=== PATIENT | female | born 1960 | race Caucasian/White ===

== ENCOUNTER 2017-10-02 11:28 | Outpatient (CLI) | payer MEDICARE | END 2017-10-02 11:29 | disposition home or self-care (01) | LOC: DTY/OP 11:28 | PROVIDERS: ATTEND Family Medicine | DX: E11.9 Type 2 diabetes mellitus without complications (principal) | CPT/HCPCS: 97802 ==

== ENCOUNTER 2017-12-01 12:22 | Outpatient (CLI) | payer MEDICARE ==
[2017-12-01] MEDS ORDERED: Gadobenate Dimeglumine 529 MG/1 ML (20ML VIAL) ONE (13:03)
== END 2017-12-01 12:23 | disposition home or self-care (01) ==
LOC: BICMRI 12:22
PROVIDERS: ATTEND Physical Medicine & Rehabilitation
DX: M47.26 Other spondylosis with radiculopathy, lumbar region (principal); Z98.890 Other specified postprocedural states
CPT/HCPCS: 72158; A9579

== ENCOUNTER 2017-12-18 23:27 | Emergency (ER) | payer MEDICARE ==
[~2017-12-18 23:27] MED LIST: ISOVUE-370 76%-LOCM 1 ML ONE
[2017-12-18] MEDS ORDERED: Ondansetron HCl/PF 4 MG/2 ML Vial ONE (23:58)
[2017-12-18] MEDS ORDERED: Morphine 4 MG/ML VIAL ONE (23:58)
[2017-12-19 00:22] LABS: #Basophils 0.1 thou/uL (0.0-0.2); #Eosinphils 0.3 thou/uL (0.0-0.7); #Lymphocytes 2.1 thou/uL (1.20-3.40); #Monocytes 0.8 thou/uL (0.11-0.59); %Basophils 0.6 % (0.0-1.0); %Lymphocytes 20.6 % (21.0-51.0); %Monocytes 7.4 % (0.0-10.0); %Neutrophils 68.4 % (42.0-75.0); Hemoglobin 15.2 g/dL (12.0-16.0); Mean Corpuscular HGB CONC 35.1 g/dL (32.0-36.0); Mean Corpuscular Volume 91.1 fL (78.0-98.0); Platelet Count 257 thou/uL (130-400); RBC Distribution Width 12.6 % (11.5-14.5); Red Blood Cell (RBC) Count 4.75 mill/uL (4.20-5.40); White Blood Cell (WBC) Count 10.2 thou/uL (4.8-10.8)
[2017-12-19 00:43] LABS: ALT (SGPT) 39 U/L (8-55); AST (SGOT) 31 U/L (5-34); Albumin 4.3 g/dL (3.5-5.0); Alkaline Phosphatase 69 U/L (40-150); Anion Gap 15 mmol/L (10-20); BUN (Urea Nitrogen) 17 mg/dL (9.8-20.1); Bilirubin, Total 1.1 mg/dL (0.2-1.2); Calc. Creatinine Clearance 0 mL/min (70-130); Calcium 9.3 mg/dL (7.8-10.44); Carbon Dioxide 23 mmol/L (22-29); Chloride 105 mmol/L (98-107); Estimated GFR-MDRD 66; Globulin 2.8 g/dL (2.4-3.5); Glucose 120 mg/dL (70-105); Lipase 65 U/L (8-78); Potassium 3.8 mmol/L (3.5-5.1); Protein, Total 7.1 g/dL (6.0-8.3); Sodium 139 mmol/L (136-145)
[2017-12-19] MEDS ORDERED: Ketorolac Tromethamine 30 MG/ML VIAL ONE (01:00)
[2017-12-19] MEDS ORDERED: Morphine 4 MG/ML VIAL ONE (02:09)
[2017-12-19 02:16] LABS: Bilirubin Negative (Negative); Blood, Urine Small (Negative); Clarity CLEAR (Clear); Glucose, Urine (Dipstick) Negative (Negative); Leukocyte Negative (Negative); Nitrite Negative (Negative); Protein, Urine (Dipstick) Negative (Neg-Trace); Urobilinogen 0.2 mg/dL (0.2-1.0); pH, Urine 6.5 (5.0-9.0)
[2017-12-19 02:19] LABS: Bacteria/HPF None Seen HPF (None Seen); Hyaline Casts/LPF 4-6 HYALINE CAST LPF (0-3 Hyaline); Pathc Cast-AUWi Flag 1.01 (0-2.49); Squamous Epithelial 0-3 HPF (0-3); WBC/HPF 0-3 HPF (0-3)
[2017-12-19 02:24] LABS: Specific Gravity, Urine Greater than 1.060 (1.002-1.036)
[2017-12-19] MEDS ORDERED: Acetaminophen/Codeine 30-300mg Tablet ONE (03:34)
[2017-12-19] MEDS ORDERED: tiZANidine HCl 4 MG TAB PO SCH (03:45)
--- NOTE | 2017-12-19 08:30 | CT ---
PRELIMINARY REPORT/[facility]/EMERGENCY AFTER HOURS PROCEDURE: EXAM: CT Abdomen and Pelvis With Intravenous Contrast CLINICAL HISTORY: 57 years old, female; Pain; Abdominal pain; Localized; Right; Patient HX: Pt reports intractable pain in the rlq that radiates to the r flank and r back. Nad, rr even and unlabored. TECHNIQUE: Axial computed tomography images of the abdomen and pelvis with intravenous contrast. Coronal reforma tted images were created and reviewed. COMPARISON: No relevant prior studies available. FINDINGS: Lung bases: Unremarkable. No mass. No consolidation. ABDOMEN: Liver: Unremarkable. No mass. Gallbladder and bile ducts: Unremarkable. No calcified stones. No ductal dilation. Pancreas: Unremarkable. No mass. No ductal dilation. Spleen: No splenomegaly. Adrenals: Unremarkable. No mass. Kidneys and ureters: Simple renal cysts No hydronephrosis. Stomach and bowel: Unremarkable. No obstruction. No mucosal thickening. PELVIS: Appendix: Postoperative changes suggestive of prior appendectomy. Bladder: Unremarkable. No mass. Reproductive: Unremarkable as visualized. ABDOMEN and PELVIS: Intraperitoneal space: Unremarkable. No free air. No significant fluid collection. Bones/joints: No acute fracture. No dislocation. Soft tissues: Unremarkable. Vasculature: Unremarkable. No abdominal aortic aneurysm. Lymph nodes: Unremarkable. No enlarged lymph nodes. IMPRESSION: No evidence of acute intra-abdominal or pelvic pathology. Thank you for allowing us to participate in the care of your patient. Dictated and Authenticated by: Sage Byrne MD 12/19/2017 1:16 AM Central Time ([place] & [place]) FINAL REPORT CT ABDOMEN AND PELVIS WITH IV CONTRAST: I agree with the preliminary report given by Dr. Sage Byrne of [facility]. POS: [facility]
--- NOTE | 2017-12-19 08:45 | ULT ---
PRELIMINARY REPORT/[facility]/EMERGENCY AFTER HOURS PROCEDURE: EXAM: US Pelvis Complete, Transabdominal US Pelvis, Transvaginal EXAM DATE/TIME: Exam ordered 12/19/2017 1:47 AM CLINICAL HISTORY: 57 years old, female; Pain and signs and symptoms; Other: Nausea; Pelvic pain and other: Rlq pain rad iating to back and rt leg; Prior surgery; Surgery date: 6+ months; Surgery type: Partially hysterecto my, both ovaries remain. Appendectomy in her 20's - note: Appendix located in patients llq; Patient HX: Rlq pain x months, severe rlq pain tonight TECHNIQUE: Real-time transabdominal and transvaginal pelvic ultrasound (complete) with image documentation. [place] svaginal imaging was used for better evaluation of the endometrium and adnexa. COMPARISON: CT Abdomen Pelvis W Con 12/19/2017 12:30 AM FINDINGS: Uterus/cervix: Patient is post hysterectomy. Right ovary: The bilateral ovaries are not visualized. No adnexal masses identified on either side. Left ovary: See above. Free fluid: No free fluid. IMPRESSION: Nonvisualization of the ovaries without adnexal mass or other pelvic pathology. Thank you for allowing us to participate in the care of your patient. Dictated and Authenticated by: Rigo Stacy MD 12/19/2017 3:18 AM Central Time ([place] & [place]) FINAL REPORT PELVIC ULTRASOUND: I agree with the preliminary report given by Dr. Rigo Stacy of [facility]. POS: [facility]
== END 2017-12-19 04:24 | disposition home or self-care (01) ==
LOC: ERS 23:27
DX: M54.5 Low back pain (principal); R10.31 Right lower quadrant pain; I10 Essential (primary) hypertension; G89.29 Other chronic pain; Z87.891 Personal history of nicotine dependence; Z79.899 Other long term (current) drug therapy
CPT/HCPCS: 74177; 76856; 80053; 81003; 81015; 83690; 85025; 87086; 96374; 96375; 96376; J1885; J2270; J2405

== ENCOUNTER 2017-12-24 12:37 | Outpatient (CLI) | payer MEDICARE ==
--- NOTE | 2017-12-24 13:59 | MRI ---
MRI PELVIS WITHOUT CONTRAST: HISTORY: Hip pain. M25.559. COMPARISON: None. FINDINGS: BONES: There is no fracture. No malalignment. No marrow infiltrative process. There are bilateral facet arthropathic changes of the lower lumbar spine. There is a posterior disk osteophyte complex at L4-L5, causing narrowing of the spinal canal and neural foramina No stress reaction. No stress fracture. MUSCLES: There is mild bilateral paraspinal muscle edema in the lower lumbar spine, at L4-L5, which may be neurogenic in nature. The remainder of the musculature is unremarkable. There are bilateral anterior-superior labral tears. No significant cartilage delamination. There is mild right-sided gluteus medius tendinosis and greater trochanteric bursitis. IMPRESSION: 1. Mild right-sided gluteus medius tendinosis and greater trochanteric bursitis. 2. Bilateral anterior-superior labral tears. 3. Mild bilateral symmetric paraspinal muscle edema at the level of L4 and L5, which may be neurogen ic in nature. Lumbar spine MRI may be beneficial. POS: [facility]
--- NOTE | 2017-12-24 14:08 | RAD ---
RIGHT HIP TWO VIEWS: 12/24/2017 HISTORY: Right hip pain. FINDINGS: There is no evidence of fracture or dislocation. Mild degenerative change is seen in the lower lumba r spine. IMPRESSION: No acute osseous abnormality right hip. POS: [facility]
== END 2017-12-24 12:38 | disposition home or self-care (01) ==
LOC: MRI 12:37
PROVIDERS: ATTEND Physician Assistant Surgical
DX: M25.559 Pain in unspecified hip (principal); M70.61 Trochanteric bursitis, right hip; M76.01 Gluteal tendinitis, right hip; S33.9XXA Sprain of unspecified parts of lumbar spine and pelvis, initial encounter; R60.0 Localized edema
CPT/HCPCS: 72195

== ENCOUNTER 2017-12-24 14:01 | Emergency (ER) | payer MEDICARE ==
[2017-12-24] MEDS ORDERED: Ketorolac Tromethamine 60 MG/2 ML VIAL ONE (15:04)
[2017-12-24] MEDS ORDERED: Diazepam 5 MG TAB ONE (15:39)
--- NOTE | 2017-12-24 17:30 | MRI ---
MRI LUMBAR SPINE WITH AND WITHOUT CONTRAST 12/24/17 HISTORY: Pain. Groin numbness. COMPARISON: MRI pelvis same day. Lumbar spine radiographs comparison 07/05/15. FINDINGS: There are hypodense foci both kidneys suggesting cysts. No retroperitoneal adenopathy. The background marrow signal is normal. There appear to be laminectomy changes at L4 and L5. Levels a re as follows: T12-L1: Normal disc. No neural foraminal or spinal canal narrowing. L1-2: Normal disc. Mild facet arthropathy. No neural foraminal or spinal canal narrowing. L2-3: There is circumferential disc bulge. Moderate facet arthropathy. There is moderate bilateral ne ural foraminal narrowing with abutment of the exiting nerve roots bilaterally as well as the right tr aversing nerve root. The spinal canal is narrowed to approximately 8 mm. L3-4: Mild disc desiccation. Low grade circumferential disc bulge. There is a moderate left and mild right sided neural foraminal narrowing. There is abutment of the exiting nerve root. Moderate facet a rthropathy. The spinal canal is not significantly narrowed. L4-5: Moderate disc desiccation. There is a broad based circumferential disc bulge There is extensive facet arthropathy. There is moderate bilateral neural foraminal narrowing with abutment of the exiti ng and traversing nerve roots bilaterally. Subforaminal posterior disc osteophyte complexes are prese nt. Spinal canal not significantly narrowed. L5-S1: There is a central posterior disc protrusion. A right paracentral posterior disc osteophyte co mplex. Moderate right sided neural foraminal narrowing. Abutment of the exiting right sided nerve riki t. Moderate facet arthropathy. IMPRESSION: Spondylosis as described above with multilevel neural foraminal narrowing and nerve root abutment. POS: [facility]
[2017-12-24] MEDS ORDERED: Ondansetron ODT 4 MG TAB ONE (17:34)
[2017-12-24] MEDS ORDERED: Morphine 4 MG/ML VIAL ONE ×2 (17:34→19:19)
--- NOTE | 2017-12-25 08:51 | CON ---
DATE OF CONSULTATION: 12/24/2017 Rigoberto Martin PA-C, dictating for Dr. Jayson Rosen. This is a 30-minute initial evaluation in which greater than 50% of the exam in counseling and coordi nating patient's care. Remainder of the exam was spent reviewing patient's medical records and appro priate imaging studies. CHIEF COMPLAINT: Right-sided low back pain, buttock pain, and hip pain with right groin numbness and tingling. HISTORY OF PRESENT ILLNESS: Ms. Roper is a 57-year-old female who was seen in [facility] for the above complaints. The patient notes that she has had a progressive worsening of the abov e symptoms after bending forward last to product picker something from the floor. She states she w as seen by Dr. Campos and received an epidural steroid injection, which she is unsure what level to tar get it and did not provide any relief for her. We also [facility] and she was prescribed a Medrol Dosepak, but she states she just cannot tell if has helped her symptoms. She denies falls or weakness into the legs, although does state she had significant issue with mobility given her debilitating pain. She has remained in bed due to her severe pain. Tizanidine and Tylenol No. 3 provide a minimal amount of relief. She does have a hist ory of undergoing a right L2-L3 hemilaminotomy and diskectomy and L4-L5 laminectomy with Dr. Silas bullard n 11/2016. She states she has done very well in regard to this surgery and again states her primary area of concern is her right hip and right buttock. Review of patient's pelvic MRI report notes some right-sided bursitis and some tendonitis. Review of patient's lumbar spine MRI compared to the prev ious lumbar spine MRI done on 12/01/2017, [facility], shows no change or progression in her There has been progression of right-sided S1 nerve root compression, compared to her that has been re current of right S1 nerve root compression. I discussed this with the patient and her at bed side. PHYSICAL EXAMINATION: The patient is awake, alert, and appropriate. She has full strength in bilate ral lower extremities with the exception of weakness into the right iliopsoas and quad and hamstring on the right given the patient's severe right-sided hip and buttock pain. She does have hypersensiti vity to sensation into the right abdominal and groin area. Gait was not tested. Her exam remains es sentially unchanged from previous exam on 12/01/2017 in clinic. IMPRESSION/DIAGNOSES: 1. Right-sided low back pain with right hip and right buttock pain. 2. History of lumbar spinal surgery right L2-L3 hemilaminotomy and diskectomy and L4-L5 laminectomy on 11/[address] Rosen. PLAN: I have discussed the patient's case and imaging with Dr. Rosen as well as the patient and her . I have asked that the ER get her pain under control and she is safe for discharge again if her imaging has remained stable. She may benefit greatly from a right hip injection, we will discuss this with Dr. Rosen at a later time. Again, we will attempt to get the patient into clinic this we ek to discuss treatment options, but hope to maximize conservative management. She may be a candidat e for revision surgery with Dr. Rosen. However, we will attempt to control her pain with conservati ve management. She and her are very appreciative of the workup. I would like her to continu e the Medrol Dosepak as ordered, her pain medications and I have asked the ER to start 100 mg of eulogio pentin t.i.d. The patient understands to re-present to the emergency room if she began to experience significant neurologic deficits otherwise we will see her in outpatient followup. Please call with questions.
== END 2017-12-24 20:39 | disposition home or self-care (01) ==
LOC: ERS 14:01
DX: M47.26 Other spondylosis with radiculopathy, lumbar region (principal); I10 Essential (primary) hypertension; Z79.899 Other long term (current) drug therapy
CPT/HCPCS: 72158; 72195; 96372; 96374; 96376; J1885; J2270; Q0162

== ENCOUNTER 2017-12-26 11:56 | Inpatient (IN) | payer MEDICARE ==
[2017-12-26] MEDS ORDERED: Acetaminophen 325 MG TAB PO PRN (12:32)
[2017-12-26] MEDS ORDERED: traMADol HCl 50 MG TAB PO PRN (12:33)
[2017-12-26 12:57] VITALS: BMI 36.2
[2017-12-26] MEDS: HYDROcodone/Acetaminophen 5/325 mg Tablet PO PRN ×2 (13:02→20:24)
[2017-12-26 14:29] LABS: Anion Gap 13 mmol/L (10-20); BUN (Urea Nitrogen) 13 mg/dL (9.8-20.1); Calc. Creatinine Clearance 110 mL/min (70-130); Calcium 9.4 mg/dL (7.8-10.44); Carbon Dioxide 22 mmol/L (22-29); Chloride 104 mmol/L (98-107); Estimated GFR-MDRD 74; Glucose 114 mg/dL (70-105); Potassium 3.4 mmol/L (3.5-5.1); Sodium 136 mmol/L (136-145)
[2017-12-26 15:21] LABS: #Basophils 0.1 thou/uL (0.0-0.2); #Lymphocytes 2.3 thou/uL (1.20-3.40); #Monocytes 0.5 thou/uL (0.11-0.59); #Neutrophils 5.9 thou/uL (1.40-6.50); %Basophils 1.1 % (0.0-1.0); %Eosinophils 0.1 % (0.0-10.0); %Lymphocytes 26.3 % (21.0-51.0); %Monocytes 5.1 % (0.0-10.0); %Neutrophils 67.3 % (42.0-75.0); Hemoglobin 16.4 g/dL (12.0-16.0); Mean Corpuscular HGB CONC 34.9 g/dL (32.0-36.0); Mean Corpuscular Hemoglobin 31.4 pg (27.0-31.0); Mean Platelet Volume 6.7 fL (7.4-10.4); Platelet Count 270 thou/uL (130-400); RBC Distribution Width 12.5 % (11.5-14.5); Red Blood Cell (RBC) Count 5.23 mill/uL (4.20-5.40); White Blood Cell (WBC) Count 8.8 thou/uL (4.8-10.8)
[2017-12-26 15:30] LABS: PTT 26.2 SEC (22.9-36.1); Prothrombin Time 13.3 SEC (12.0-14.7)
[2017-12-26] MEDS: tiZANidine HCl 4 MG TAB PO PRN (16:52)
[2017-12-26] MEDS: Acetaminophen/Codeine 30-300mg Tablet PO PRN (18:15)
[2017-12-26] MEDS: Atorvastatin Calcium 20 MG TAB PO SCH (20:22)
[2017-12-26] MEDS: Lisinopril/Hydrochlorothiazide 20/25 mg Tablet PO SCH (20:23)
[2017-12-26] MEDS: Zolpidem Tartrate 5 MG TAB PO SCH (20:23)
[2017-12-26] MEDS: Gabapentin 300 MG CAP PO SCH (20:23)
[2017-12-27] MEDS: Acetaminophen/Codeine 30-300mg Tablet PO PRN ×2 (02:29→21:06)
[2017-12-27] MEDS: tiZANidine HCl 4 MG TAB PO PRN ×2 (02:29→18:29)
[2017-12-27] MEDS: Levothyroxine Sodium 25 MCG TAB PO SCH (05:34)
[2017-12-27] MEDS ORDERED: Thrombin 5000 UNITS/5 ML VIAL ONE (07:53)
[2017-12-27] MEDS ORDERED: Sodium Chloride 0.9% 10 ML ONE (07:53)
[2017-12-27] MEDS ORDERED: Bacitracin Zinc Ointment 30 gm TUBE ONE (07:53)
[2017-12-27] MEDS ORDERED: Fentanyl 250 MCG/5 ML VIAL ONE (08:05)
[2017-12-27] MEDS ORDERED: CEFAZOLIN/Water 2 GM/20 ML SYRINGE ONE (08:32)
[2017-12-27] MEDS ORDERED: Midazolam HCl 2 mg/2 ml Vial ONE (08:32)
[2017-12-27] MEDS ORDERED: PHENYLEPHRINE-NS 100 MCG/ML 10 ML SYRINGE ONE ×2 (09:50→14:58)
[2017-12-27] MEDS ORDERED: Phenylephrine HCL 10 MG/ML VIAL ONE (10:28)
[2017-12-27] MEDS ORDERED: Promethazine HCl 25 MG/ML VIAL IM PRN (12:37)
[2017-12-27] MEDS ORDERED: Ondansetron HCl/PF 4 MG/2 ML Vial IVP PRN (12:37)
[2017-12-27] MEDS ORDERED: Promethazine HCl 25 MG/ML VIAL SLOW IVP PRN (12:37)
[2017-12-27] MEDS ORDERED: Meperidine HCl/PF 25 MG/ML VIAL SLOW IVP PRN (12:37)
[2017-12-27] MEDS ORDERED: Fentanyl 100 MCG/2 ML VIAL ONE ×2 (12:42→13:00)
[2017-12-27] MEDS ORDERED: Meperidine HCl/PF 25 MG/ML VIAL ONE (12:46)
--- NOTE | 2017-12-27 13:46 | OP ---
SURGEON: Jayson Rosen M.D. SCREED OPERATOR: Rigoberto Martin PA-C. POSTOPERATIVE DIAGNOSES: 1. Lumbar stenosis. 2. Lumbar radiculopathy. PROCEDURES PERFORMED: Right L3-L4 hemilaminotomy, foraminotomy with right revision L4-L5 hemilaminot kika, foraminotomy, and far lateral diskectomy with right L5-S1 hemilaminotomy, foraminotomy. SPECIMENS: None. ESTIMATED BLOOD LOSS: 200 mL. FINDINGS: 1. Lumbar stenosis. 2. Lumbar radiculopathy.
[2017-12-27] MEDS ORDERED: CEFAZOLIN 2 GM in Sodium Chloride 0.9% 100 ML IVPB SCH (14:17)
[2017-12-27] MEDS: Gabapentin 300 MG CAP PO SCH ×2 (14:28→21:05)
--- NOTE | 2017-12-27 14:49 | OP ---
OR: 12. WOUND TYPE: TYPE 1 WOUND. SURGEON: Jayson Rosen M.D. LEVERS LACE MACHINE OPERATOR: Rigoberto Martin PA-C. PREPROCEDURE DIAGNOSES: 1. Right L4 radiculopathy with right L3-L4 stenosis. 2. Right L4-L5 disk extrusion with right L5 radiculopathy and right L4 foraminal and far lateral dis k extrusion, compressing the exiting right L4 root. 3. Right S1 radiculopathy with low back and right leg pain, multiple dermatomes. 4. History of prior L4-L5 decompression. PROCEDURES: 1. Right L3-L4 hemilaminotomy, foraminotomy. 2. Revision right L4-L5 hemilaminotomy and foraminotomy. 3. Transfacet far lateral approach, right L4 decompression and diskectomy, right L4-L5. 4. Right L5-S1 hemilaminotomy, foraminotomy. 5. Use of operative microscope for microdissection. DESCRIPTION OF PROCEDURE: After informed consent was obtained from the patient, the patient was brou ght to OR 12. Proper patient pause and identification was carried out. She was placed under excelle nt general endotracheal anesthesia and positioned prone on the OR table. All appropriate points were padded. The prior lumbar wound from the prior surgery was identified and a portion of this was used . This region was sterilely cleansed, prepared, and draped. Proper patient pause and identification was carried out. The wound was then opened with a combination of sharp, monopolar, and blunt dissec tion. We proceeded over the right L3-L4 segment. Localization film confirmed our area of interest. We then worked scar tissue and identified the revision region of the right L4-L5 area along with the pars of L4, the L4-L5 facet on the right side in the right L5-S1 segment. We were satisfied with ou r exposure at that point. We then performed a right L3-L4 hemilaminotomy with decompression of the t raversing right L4 nerve root and assurance of freedom of the right L3 nerve root. I did not think i t necessary to perform a diskectomy at that segment. I then turned my attention to revision right L4 -L5 procedure and identified disk material compressing the exiting right L4 root in the foramen and f ar lateral region along with compression of the right L5 nerve root. Diskectomy was performed with e xcellent decompression of the right L5 and the exiting right L4 root through a transfacet approach. I then turned my attention to following the right L5 and right S1 root out at the right L5-S1 hemilam arely, and I did not feel it necessary to perform a diskectomy at this segment as well. The microscope was used for microdissection. Copious irrigation occurred throughout, as did maximizing hemostasis. The wound was copiously irrigated and closed in anatomic layers following the sprinkling of vancomy joão powder. The patient then emerged from anesthesia.
[2017-12-27] MEDS ORDERED: ePHEDrine/0.9% NaCl/PF SYRINGE 50 mg/10 ml ONE (14:58)
[2017-12-27] MEDS ORDERED: Ondansetron HCl/PF 4 MG/2 ML Vial ONE (14:58)
[2017-12-27] MEDS ORDERED: Dexamethasone 20 MG/5 ML VIAL ONE (14:58)
[2017-12-27] MEDS ORDERED: Glycopyrrolate 0.2 MG/ML 5 ML SYRINGE ONE (14:58)
[2017-12-27] MEDS ORDERED: Lidocaine 1% PF 5 ML VIAL ONE (14:58)
[2017-12-27] MEDS ORDERED: PROPOFOL 200 MG/20 ML VIAL ONE (14:58)
[2017-12-27] MEDS: HYDROcodone/Acetaminophen 5/325 mg Tablet PO PRN (16:56)
[2017-12-27] MEDS: CEFAZOLIN/Water 2 GM/20 ML SYRINGE SLOW IVP SCH (16:56)
[2017-12-27] MEDS: Lisinopril/Hydrochlorothiazide 20/25 mg Tablet PO SCH (21:05)
[2017-12-27] MEDS: Zolpidem Tartrate 5 MG TAB PO SCH (21:06)
[2017-12-27] MEDS: Atorvastatin Calcium 20 MG TAB PO SCH (21:06)
[2017-12-27] MEDS ORDERED: Albuterol Sulfate 2.5 mg/3 ml Neb NEB PRN (23:20)
[2017-12-28] MEDS: HYDROcodone/Acetaminophen 5/325 mg Tablet PO PRN ×3 (00:04→11:55)
[2017-12-28] MEDS: CEFAZOLIN/Water 2 GM/20 ML SYRINGE SLOW IVP SCH ×2 (01:43→08:04)
[2017-12-28] MEDS: Acetaminophen/Codeine 30-300mg Tablet PO PRN ×2 (01:43→08:05)
[2017-12-28] MEDS: tiZANidine HCl 4 MG TAB PO PRN ×2 (01:44→10:08)
[2017-12-28] MEDS: Levothyroxine Sodium 25 MCG TAB PO SCH (05:56)
[2017-12-28] MEDS: Gabapentin 300 MG CAP PO SCH (08:05)
[2017-12-28] MEDS ORDERED: Docusate 100 MG CAP PO SCH (09:00)
[2017-12-28 11:28] VITALS: BP 100/60; TEMP 98.1
--- NOTE | 2017-12-28 11:56 | DIS ---
DATE OF ADMISSION: 12/26/2017 DATE OF DISCHARGE: 12/28/2017 DISCHARGE DIAGNOSES: 1. Lumbar stenosis with lumbar herniated nucleus pulposus, recurrent. 2. Low back pain with right hip pain and right lumbar radiculopathy. HOSPITAL COURSE: Ms. Roper was admitted on 12/26/2017 to undergo an urgent right L3-L4 hemilaminotom y, foraminotomy with revision of right L4-L5 hemilaminotomy and diskectomy and right L5-S1 hemilamino evelina and foraminotomy. The patient tolerated the procedure well, and it was without complication and she was able to recover overnight on the surgical floor. At the time of discharge, she had signific ant improvement in her right lower extremity symptoms including improvement in right groin pain and r ight hip pain. She met criteria for discharge, had good strength in the bilateral lower extremities. Appropriate outpatient followup appointments and patient education were provided for the patient an d at the time of discharge, both she and her were pleased with her outcome postoperatively. They understood to call the office with questions or concerns in the meantime.
--- NOTE | 2017-12-30 13:42 | EKG ---
Test Reason : Blood Pressure : / mmHG Vent. Rate : 068 BPM Atrial Rate : 068 BPM P-R Int : 146 ms QRS Dur : 094 ms QT Int : 396 ms P-R-T Axes : 041 094 042 degrees QTc Int : 421 ms Normal sinus rhythm Rightward axis Borderline ECG Confirmed by VANESSA MOSHER ([id number]) on 12/30/2017 1:41:30 PM Referred By: DELIA Confirmed By:VANESSA MOSHER
== END 2017-12-28 13:32 | disposition home or self-care (01) | DRG 520 ==
LOC: SURG B 11:56
PROVIDERS: ADMIT Surgery; ATTEND Surgery
PROC: 0SB20ZZ Excision of Lumbar Vertebral Disc, Open Approach (ICD-10-PCS; principal; 2017-12-26)
PROC: 01NB0ZZ Release Lumbar Nerve, Open Approach (ICD-10-PCS; 2017-12-26)
DX: M48.061 Spinal stenosis, lumbar region without neurogenic claudication (principal); M51.16 Intervertebral disc disorders with radiculopathy, lumbar region
CPT/HCPCS: 36415; 76001; 80048; 85025; 85610; 85730; 93005; 93010; 94640; A4216; J0131; J1100; J2001; J2175; J2250; J2270; J2370; J2405; J2704; J3010; J3370; J3490; J7611

== ENCOUNTER 2018-07-27 13:25 | Outpatient (CLI) | payer MEDICARE ==
--- NOTE | 2018-07-29 11:12 | MMO ---
Bilateral MAMMO Bilat Screen [facility]. CLINICAL HISTORY: Patient is 58 years old and is seen for screening. The patient has no family history of breast cancer. The patient has no personal history of cancer. The patient has a history of right Excisional Biopsy in ? - benign. VIEWS: The views performed were: bilateral craniocaudal with tomosynthesis and bilateral mediolateral oblique with tomosynthesis. FILMS COMPARED: The present examination has been compared to prior imaging studies performed at [facility] on 08/22/2016 and 09/05/2016. MAMMOGRAM FINDINGS: There are scattered fibroglandular densities. There are stable benign appearing calcifications seen in the right breast. There are no suspicious masses, suspicious calcifications, or new areas of architectural distortion. IMPRESSION: THERE IS NO MAMMOGRAPHIC EVIDENCE OF MALIGNANCY. A ROUTINE FOLLOW-UP MAMMOGRAM IN 1 YEAR IS RECOMMENDED. THE RESULTS OF THIS EXAM WERE SENT TO THE PATIENT. ACR BI-RADS Category 2 - Benign finding MAMMOGRAPHY NOTE: 1. A negative mammogram report should not delay a biopsy if a dominant of clinically suspicious mass is present. 2. Approximately 10% to 15% of breast cancers are not detected by mammography. 3. Adenosis and dense breasts may obscure an underlying neoplasm.
== END 2018-07-27 13:26 | disposition home or self-care (01) ==
LOC: BICMAMMO 13:25
PROVIDERS: ATTEND Family Medicine
DX: Z12.31 Encounter for screening mammogram for malignant neoplasm of breast (principal)
CPT/HCPCS: 77063; 77067

== ENCOUNTER 2018-08-28 07:32 | Outpatient (CLI) | payer MEDICARE ==
--- NOTE | 2018-08-28 10:39 | MRI ---
MRI CERVICAL SPINE WITHOUT CONTRAST: HISTORY: Left arm numbness x1 week. Surgery 10 years ago. COMPARISON: None. FINDINGS: There is metallic susceptibility artifact secondary to an anterior fusion plate at C5, C6, and C7. T here is evidence of bone plug material at the C5-C6 and C6-C7 disk spaces. Straightening of the norm al cervical lordosis is noted. Appropriate T1 marrow signal intensity of the cervical vertebrae. No significant STIR hyperintensity to suggest vertebral body edema or ligamentous injury. The visualized brain parenchyma, cervicomedullary junction, cervical cord, and upper thoracic cord longoria ve normal size and signal intensity. C2-C3: No significant central canal stenosis. The right neural foramen is minimally narrowed due to uncovertebral hypertrophy. Mild left foraminal narrowing due to uncovertebral hypertrophy. C3-C4: Broad-based disk osteophyte complex abuts the thecal sac. Mild central canal stenosis. No s ignal abnormality in the cord. Mild bilateral foraminal narrowing due to uncovertebral hypertrophy. C4-C5: Broad-based disk osteophyte complex effaces the ventral thecal sac and deforms the cervical c ord. Moderate central canal stenosis. No signal abnormality in the cord. Mild right and moderate l eft foraminal narrowing due to uncovertebral hypertrophy. C5-C6: No high-grade central canal stenosis. Mild bilateral foraminal narrowing due to uncovertebra l hypertrophy. C6-C7: No high-grade central canal stenosis. The right neural foramen is patent. Mild left foramin al narrowing due to uncovertebral hypertrophy. C7-T1: No significant central canal stenosis or neural foraminal narrowing. IMPRESSION: Degenerative changes of the cervical spine, as detailed above. POS: [facility]
== END 2018-08-28 07:33 | disposition home or self-care (01) ==
LOC: TBSIIMAG 07:32
PROVIDERS: ATTEND Anesthesiology Pain Medicine
DX: M47.22 Other spondylosis with radiculopathy, cervical region (principal)
CPT/HCPCS: 72141

== ENCOUNTER 2018-09-24 10:11 | Outpatient (CLI) | payer MEDICARE ==
[2018-09-24 11:42] LABS: #Basophils 0.1 thou/uL (0.0-0.2); #Eosinphils 0.2 thou/uL (0.0-0.7); #Lymphocytes 3.2 thou/uL (1.20-3.40); #Monocytes 0.8 thou/uL (0.11-0.59); #Neutrophils 3.7 thou/uL (1.40-6.50); %Basophils 0.9 % (0.0-1.0); %Eosinophils 2.8 % (0.0-10.0); %Monocytes 9.6 % (0.0-10.0); %Neutrophils 46.7 % (42.0-75.0); Hemoglobin 15.5 g/dL (12.0-16.0); Mean Corpuscular HGB CONC 33.7 g/dL (32.0-36.0); Mean Corpuscular Hemoglobin 31.3 pg (27.0-31.0); Mean Corpuscular Volume 92.8 fL (78.0-98.0); Mean Platelet Volume 7.3 fL (7.4-10.4); Platelet Count 259 thou/uL (130-400); Red Blood Cell (RBC) Count 4.95 mill/uL (4.20-5.40)
[2018-09-24 12:06] LABS: Anion Gap 15 mmol/L (10-20); BUN (Urea Nitrogen) 14 mg/dL (9.8-20.1); Calc. Creatinine Clearance 0 mL/min (70-130); Calcium 10.1 mg/dL (7.8-10.44); Carbon Dioxide 24 mmol/L (22-29); Chloride 105 mmol/L (98-107); Estimated GFR-MDRD 82; Glucose 83 mg/dL (70-105); Potassium 3.8 mmol/L (3.5-5.1); Sodium 140 mmol/L (136-145)
== END 2018-09-24 10:12 | disposition home or self-care (01) ==
LOC: LABBT 10:11
PROVIDERS: ATTEND Orthopaedic Surgery Hand Surgery
DX: Z01.818 Encounter for other preprocedural examination (principal); G56.03 Carpal tunnel syndrome, bilateral upper limbs
CPT/HCPCS: 80048; 85025; 93005; 93010

== ENCOUNTER 2018-09-28 10:20 | Day surgery (SDC) | payer MEDICARE ==
[2018-09-24 10:23] VITALS: BMI 39.3
[2018-09-28] MEDS ORDERED: Fentanyl 100 MCG/2 ML VIAL ONE ×4 (13:45→17:44)
[2018-09-28] MEDS ORDERED: Betamet Acet/Betamet Na Ph 30 MG/5 ML VIAL ONE (13:49)
[2018-09-28] MEDS ORDERED: Bupivacaine PF 0.5% 30 ML VIAL ONE (13:49)
[2018-09-28] MEDS ORDERED: Bacitracin Zinc Ointment 30 gm TUBE ONE (13:49)
[2018-09-28] MEDS ORDERED: Dexamethasone 20 MG/5 ML VIAL ONE (15:30)
[2018-09-28] MEDS ORDERED: PROPOFOL 200 MG/20 ML VIAL ONE (15:30)
[2018-09-28] MEDS ORDERED: Lidocaine 1% PF 5 ML VIAL ONE (15:30)
[2018-09-28] MEDS ORDERED: Ondansetron PF 4 MG/2 ML Vial ONE (15:30)
[2018-09-28] MEDS ORDERED: Ketorolac Tromethamine 30 MG/ML VIAL ONE ×3 (15:30→16:44)
[2018-09-28] MEDS ORDERED: Morphine 4 MG/ML VIAL ONE (17:12)
[2018-09-28] MEDS ORDERED: HYDROcodone/Acetaminophen 5/325 mg Tablet ONE (18:23)
--- NOTE | 2018-09-29 13:00 | OP ---
DATE OF PROCEDURE: 09/28/2018 PREOPERATIVE DIAGNOSES: 1. Left median nerve compression, elbow, proximal forearm level. 2. Medial nerve compression at the wrist/carpal tunnel syndrome on the left and on the right, median nerve compression at the wrist along with carpal tunnel syndrome. PROCEDURES PERFORMED: 1. Left carpal tunnel release. 2. Left pronator median nerve release at the elbow. 3. Right carpal tunnel release. TOURNIQUET TIME: 1. Left, 37 minutes. 2. Right, 11 minutes. COMPLICATIONS: None. SPECIMEN: None. INDICATIONS: The patient with clinical pronator syndrome as well as no evidence of complete relief after previous history of a cervical disease and positive EMGs and exam for carpal tunnel release bilaterally. ANESTHESIA: General, LMA technique. ESTIMATED BLOOD LOSS: On the left 10 mL. On the right, less than equal to 5 mL. DESCRIPTION OF PROCEDURE: After successful general endotracheal anesthesia, the limb was prepped and draped. The tourniquet was well padded, placed high on the left side, in a standard position on the right. We approached the left first and had prepped and draped and a time-out was done. Zigzag incision was outlined, feeling the brachial pulse, and beginning so we could visualize the wrist flexion crease, began the incision 1 cm distal to the wrist flexion crease. It was then in line in the where the flexor pronator crossed over toward the radial side muscles. Carried the incision through the skin and subcutaneous tissue, identified underneath this and deep in the fat, passing median nerv underneath this which was very constricting toward the nerve. Then followed the nerve through its fascia, released it as it went underneath the pronator arch and the flexor digitorum fascia. There was no compression of the tumor seen. The patient then had the attention turned to the distal nerve and here, we outlined incision beginning 5 mm distal to the volar wrist flexion crease and then coursing in line with the ring finger to the Clark cardinal line. We carried the incision through skin and subcutaneous tissue till we saw the transverse carpal ligament. From the midportion distally, released it with combination of [place] blade and tenotomy scissors. From the midportion proximally, at the tunnel and visualizing the entire carpal ligament, released it with a combination of [place] blade and a small amount of tenotomy scissors. The nerve showed no hourglass formation, but did show stippling. We placed Celestone 2 mL in the carpal tunnel and 3 in the pronator region. We released the tourniquet and obtained hemostasis. This included placing 1 clip on the muscular bleeding branch deep. The patient then had the carpal tunnel incision on the left closed with interrupted 4-0 nylon in a mattress pattern and then we closed the pronator incision with a running 4-0 Monocryl for the deep dermal and epidermis with 4-0 nylon interrupted mattress pattern. The mirror image left wrist procedure was then performed on the right with tourniquet time of 11 minutes. We then placed a sterile bacitracin, Adaptic, 4 x 4, and Kerlix on each incision with bulky hand dressing on both sides, Madhav wrap 6-inch proximally on the forearm and distal arm and a 4-inch Madhav wrap on both sides of the carpal tunnel incision. The patient left the operating room without evidence of anesthetic or operative complication. Job ID: [id number]
== END 2018-09-28 19:25 | disposition home or self-care (01) ==
LOC: SDC 10:20
PROVIDERS: ATTEND Orthopaedic Surgery Hand Surgery
PROC: 01N50ZZ Release Median Nerve, Open Approach (ICD-10-PCS; principal; 2018-09-28)
PROC: 01N50ZZ Release Median Nerve, Open Approach (ICD-10-PCS; 2018-09-28)
DX: G56.03 Carpal tunnel syndrome, bilateral upper limbs (principal); G56.12 Other lesions of median nerve, left upper limb; I10 Essential (primary) hypertension; E11.40 Type 2 diabetes mellitus with diabetic neuropathy, unspecified; M47.892 Other spondylosis, cervical region; M47.896 Other spondylosis, lumbar region; E78.5 Hyperlipidemia, unspecified; G47.00 Insomnia, unspecified; E03.9 Hypothyroidism, unspecified; Z79.84 Long term (current) use of oral hypoglycemic drugs; Z79.899 Other long term (current) drug therapy
CPT/HCPCS: J0690; J0702; J1100; J1885; J2001; J2270; J2405; J2704; J3010; S0020

== ENCOUNTER 2018-11-04 19:30 | Outpatient (CLI) | payer MEDICARE | END 2018-11-04 19:31 | disposition home or self-care (01) | LOC: SLEEPLAB 19:30 | PROVIDERS: ATTEND Psychiatry & Neurology Neurology | DX: G47.33 Obstructive sleep apnea (adult) (pediatric) (principal); I10 Essential (primary) hypertension; E11.9 Type 2 diabetes mellitus without complications; G47.61 Periodic limb movement disorder | CPT/HCPCS: 95811 ==

== ENCOUNTER 2018-11-17 08:32 | Outpatient (CLI) | payer MEDICARE ==
--- NOTE | 2018-11-17 10:13 | MRI ---
MRI THORACIC SPINE NONCONTRAST: Date: 11/17/18 HISTORY: 58-year-old female with Thoracic radiculitis M54.14. Mid back pain for a few months. COMPARISON: None. FINDINGS: There is a ACDF hardware in the cervical spine down to the C7 level. The thoracic vertebral body heig hts are maintained. No major bone marrow signal abnormality. Thoracic spinal cord is normal in size a nd signal. No syringohydromyelia. Conus medullaris terminates at approximately L1. No extrinsic cord impingement. Small and tiny focal disc protrusions or disc-osteophyte complexes throughout almost all levels of the upper and mid thoracic spine encroach upon the spinal canal, including midline, right paracentral, and left paracentral locations. No high grade central spinal canal stenosis at any level . No major pathology of perivertebral spaces identified. Cyst at right renal upper-mid pole. No hydro nephrosis. IMPRESSION: 1. Mild thoracic spondylosis throughout mid and upper levels. 2. Otherwise negative. POS: [facility]
== END 2018-11-17 08:33 | disposition home or self-care (01) ==
LOC: TBSIIMAG 08:32
PROVIDERS: ATTEND Nurse Practitioner Family
DX: M47.24 Other spondylosis with radiculopathy, thoracic region (principal)
CPT/HCPCS: 72146

== ENCOUNTER 2019-06-02 08:02 | Outpatient (CLI) | payer MEDICARE ==
--- NOTE | 2019-06-02 09:38 | ULT ---
Sonogram right upper quadrant HISTORY: Postprandial upper abdomen pain. FINDINGS: No shadowing stones of the gallbladder are apparent. An echogenic focus at the fundal wall shows ringdown artifact, consistent with adenomyomatosis, mild. There is no gallbladder wall thickening or pericholecystic fluid. Common duct is 0.3 cm diameter. Liver is diffusely echogenic. Areas of fatty sparing near the gallbladder fossa. No free fluid. Small shadowing echogenic foci associated with the right kidney at the expected location of the calyc es. No hydronephrosis. IMPRESSION: Mild adenomyomatosis of the gallbladder wall. No evidence of stones or biliary obstructio n. Hepatic steatosis. Nonobstructing right renal calculi.
--- NOTE | 2019-06-02 14:05 | MRI ---
MRI lumbar spine noncontrast HISTORY: Low back pain with right leg radiculopathy. Prior surgeries. FINDINGS: The conus medullaris has normal appearance. Vertebral body heights and alignment are mainta ined. Mild discogenic endplate changes within the vertebral body bone marrow. Images including the retroperitoneum show cysts involving the cortex of each kidney. T12-L1: Osteophytosis. Central canal and neural foramina are patent. L1-2: Mild disc space narrowing. Minimal disc bulge. Osteophytosis of the facets. Central canal and l eft neural foramen are patent. Far right lateral disc bulge encroaches upon the right L1 nerve root within the neural foramen with moderate stenosis. L2-3: Desiccation of the disc. Disc space narrowing with mild posterior disc bulge. Osteophytosis of the facets. Mild central canal stenosis. Disc bulge and degenerative changes result in moderate right and mild to moderate left foraminal stenoses. L3-4: Diffuse disc bulge. Osteophytosis of the facets. Thecal sac is patent. Mild right and moderate left foraminal stenoses. L4-5: Disc space narrowing. Postoperative changes in the posterior tissues including muscular atrophy of the right lower posterior paraspinous musculature. Posterior disc bulge and circumferential degenerative changes. Mild stenosis of the thecal sac. Severe right and moderate to severe left quan inal stenoses. L5-S1: Very mild disc bulge. Prominent osteophytosis of the facets. Thecal sac is patent. Moderate ri ght and moderate to severe left foraminal stenoses. IMPRESSION: Prominent multilevel degenerative changes and postoperative changes of the lumbar spine. Stenosis is most severe involving the neural foramina at the L4-5 level, right worse than left. Clinical correlation regarding each L4 dermatome is required.
== END 2019-06-02 08:03 | disposition home or self-care (01) ==
LOC: SCSMRI 08:02
PROVIDERS: ATTEND Family Medicine
DX: M48.061 Spinal stenosis, lumbar region without neurogenic claudication (principal); R10.9 Unspecified abdominal pain; M47.816 Spondylosis without myelopathy or radiculopathy, lumbar region; Z98.890 Other specified postprocedural states; K82.8 Other specified diseases of gallbladder; K76.0 Fatty (change of) liver, not elsewhere classified; N20.0 Calculus of kidney
CPT/HCPCS: 72148; 76705

== ENCOUNTER 2020-01-11 07:53 | Outpatient (CLI) | payer MEDICARE | END 2020-01-11 07:54 | disposition home or self-care (01) | PROVIDERS: ATTEND Anesthesiology Pain Medicine | DX: M54.16 Radiculopathy, lumbar region (principal) ==

== ENCOUNTER 2020-03-13 15:25 | Outpatient (CLI) | payer MEDICARE | END 2020-03-13 15:26 | disposition home or self-care (01) | LOC: DTY/OP 15:25 | PROVIDERS: ATTEND Family Medicine | DX: E11.9 Type 2 diabetes mellitus without complications (principal) | CPT/HCPCS: 97802 ==

== ENCOUNTER 2020-03-30 06:47 | Outpatient (CLI) | payer MEDICARE ==
[2020-03-31 03:06] LABS: SARS-CoV-2 MS2 Positive; SARS-CoV-2 N Gene Negative; SARS-CoV-2 S Gene Negative; SARS-CoV-2 by NAA Not Detected (NotDetected); SARS-CoV-2 orf1ab Negative
== END 2020-03-30 06:48 | disposition home or self-care (01) ==
LOC: LABBT 06:47
PROVIDERS: ATTEND Internal Medicine
DX: Z20.828 Contact with and (suspected) exposure to other viral communicable diseases (principal)
CPT/HCPCS: 87635; U0003

== ENCOUNTER 2020-04-04 06:33 | Day surgery (SDC) | payer MEDICARE ==
[2020-04-03 08:18] VITALS: BMI 40.2
--- NOTE | 2020-04-04 10:14 | OP ---
DATE OF PROCEDURE: 04/04/2020 [employer] AFFA[employer] CONSULTANT SURGEON: None. PROCEDURES PERFORMED: 1. Esophagogastroduodenoscopy, diagnostic. 2. Colonoscopy, diagnostic. INDICATIONS: 1. Generalized abdominal pain. 2. Right upper quadrant pain. 3. Chronic constipation. MEDICATIONS: See Anesthesia record. FINDINGS: After discussion of the risks, benefits, and alternatives of the procedure, informed consent was obtained and witnessed. Pre-endoscopic cardiopulmonary examination was satisfactory. Time-out was performed before sedation was achieved. Sedation was achieved with Anesthesia assistance in the endoscopy unit. A Pentax adult upper endoscope was placed into the oropharynx and passed through the cricopharyngeus under direct visualization. The esophageal mucosa appeared normal throughout with a normal-appearing Z-line at 33 cm from the incisors. The endoscope was advanced into the stomach. Forward and retroflexed views of the entire gastric mucosa were obtained. The gastric mucosa appeared normal. The endoscope was advanced through the pylorus and into the first and second portions of the duodenum, which also appeared normal. The upper endoscope was completely withdrawn and the patient was repositioned. Digital rectal exam was performed, which was unremarkable. A Pentax adult colonoscope was inserted into the anus and passed forward to the cecum in the usual fashion. Advancement around the right colon was difficult due to looping of the endoscope. The cecal base was reached with the assistance of manual pressure. The terminal ileum was not intubated. The cecal base was identified by the appendiceal orifice as well as the ileocecal valve. The colonoscope was slowly withdrawn in a gradual and circumferential manner with careful examination of the entire colonic mucosa. The quality of the prep was good. The colonic mucosa appeared normal throughout. There was no evidence of any polyps or mass lesions. No inflammation. No other mucosal abnormalities. Retroflexion in the rectum was unremarkable. The colonoscope was completely withdrawn and the patient allowed to recover. The patient tolerated the procedure well. There were no immediate postprocedure complications. IMPRESSION: 1. Normal EGD. 2. Normal colonoscopy to the cecum. RECOMMENDATIONS: 1. Trial dicyclomine 10 mg by mouth three times daily as needed for abdominal discomfort. 2. Follow up in GI clinic in about 1 month. Job ID: [id number]
[2020-04-04] MEDS ORDERED: Lidocaine 1% PF 5 ML VIAL ONE (10:18)
[2020-04-04] MEDS ORDERED: PROPOFOL 200 MG/20 ML VIAL ONE (10:18)
== END 2020-04-04 11:02 | disposition home or self-care (01) ==
LOC: SDC 06:33
PROVIDERS: ATTEND Internal Medicine
PROC: 0DJ08ZZ Inspection of Upper Intestinal Tract, Via Natural or Artificial Opening Endoscopic (ICD-10-PCS; principal; 2020-04-04)
PROC: 0DJD8ZZ Inspection of Lower Intestinal Tract, Via Natural or Artificial Opening Endoscopic (ICD-10-PCS; 2020-04-04)
DX: K59.09 Other constipation (principal); R10.84 Generalized abdominal pain; E11.9 Type 2 diabetes mellitus without complications; M19.90 Unspecified osteoarthritis, unspecified site; I10 Essential (primary) hypertension; E78.00 Pure hypercholesterolemia, unspecified; E03.9 Hypothyroidism, unspecified; G47.00 Insomnia, unspecified; G47.33 Obstructive sleep apnea (adult) (pediatric); J45.909 Unspecified asthma, uncomplicated; E66.01 Morbid (severe) obesity due to excess calories; Z68.41 Body mass index [BMI] 40.0-44.9, adult; Z87.891 Personal history of nicotine dependence; Z79.899 Other long term (current) drug therapy
CPT/HCPCS: J2704

== ENCOUNTER 2020-07-11 17:30 | Outpatient (CLI) | payer MEDICARE | END 2020-07-11 17:31 | disposition home or self-care (01) | LOC: SLEEPLAB 17:30 | PROVIDERS: ATTEND Family Medicine | DX: G47.33 Obstructive sleep apnea (adult) (pediatric) (principal); G47.00 Insomnia, unspecified; R53.83 Other fatigue; E66.9 Obesity, unspecified; R06.83 Snoring; I10 Essential (primary) hypertension; E11.9 Type 2 diabetes mellitus without complications; Z68.41 Body mass index [BMI] 40.0-44.9, adult | CPT/HCPCS: 95806 ==

== ENCOUNTER 2021-12-07 08:42 | Outpatient (CLI) | payer OTHER ==
[2021-12-07] MEDS ORDERED: Iopamidol-370 76% 500 ML 1 ML ONE (09:23)
== END 2021-12-07 08:43 | disposition home or self-care (01) ==
LOC: BICCT 08:42
PROVIDERS: ATTEND Surgery
DX: M62.08 Separation of muscle (nontraumatic), other site (principal)
CPT/HCPCS: 74177; 82565; Q9967

== ENCOUNTER 2022-02-12 15:14 | Outpatient (CLI) | payer OTHER | END 2022-02-12 15:15 | disposition home or self-care (01) | LOC: DTY/OP 15:14 | PROVIDERS: ATTEND Surgery | DX: E66.01 Morbid (severe) obesity due to excess calories (principal) | CPT/HCPCS: 97802 ==

== ENCOUNTER 2022-03-13 10:15 | Outpatient (CLI) | payer OTHER ==
[2022-03-13 12:16] LABS: #Eosinphils 0.2 10x3/uL (0.0-0.5); #Monocytes 0.6 10x3/uL (0.0-1.1); #Neutrophils 3.2 10x3/uL (1.5-8.4); %Basophils 0.6 % (0.0-2.0); %Eosinophils 2.6 % (0.0-6.0); %Lymphocytes 38.2 % (18.0-47.0); %Monocytes 9.4 % (0.0-10.0); %Neutrophils 48.9 % (40.0-75.0); Hemoglobin 15.7 g/dL (12.0-15.5); Mean Corpuscular HGB CONC 34.7 g/dL (32.0-36.0); Mean Corpuscular Volume 89.3 fl (81.6-98.3); Mean Platelet Volume 10.6 fl (7.4-10.4); Platelet Count 252 10x3/uL (150-450); RBC Distribution Width 13.1 % (11.5-14.5); Red Blood Cell (RBC) Count 5.06 10x6/uL (3.90-5.03); White Blood Cell (WBC) Count 6.5 10x3/uL (3.5-10.5)
[2022-03-13 12:31] LABS: ALT (SGPT) 43 U/L (8-55); AST (SGOT) 43 U/L (5-34); Albumin 4.7 g/dL (3.4-4.8); Alkaline Phosphatase 79 U/L (40-110); Anion Gap 14 mmol/L (10-20); BUN (Urea Nitrogen) 15 mg/dL (9.8-20.1); Bilirubin, Total 1.7 mg/dL (0.2-1.2); Calc. Creatinine Clearance 0 mL/min (70-130); Calcium 9.8 mg/dL (7.8-10.44); Carbon Dioxide 28 mmol/L (23-31); Chloride 104 mmol/L (98-107); Estimated GFR 89; Globulin 2.5 g/dL (2.4-3.5); Glucose 100 mg/dL (80-115); Potassium 4.3 mmol/L (3.5-5.1); Protein, Total 7.2 g/dL (5.8-8.1); Sodium 142 mmol/L (136-145)
[2022-03-13 20:24] LABS: Hemoglobin A1c 6.5 % (4.0-6.0)
== END 2022-03-13 10:16 | disposition home or self-care (01) ==
LOC: LABBT 10:15
PROVIDERS: ATTEND Surgery
DX: Z01.818 Encounter for other preprocedural examination (principal); E66.01 Morbid (severe) obesity due to excess calories
CPT/HCPCS: 71046; 80053; 83036; 85025

== ENCOUNTER 2022-03-13 11:15 | Inpatient (IN) | payer OTHER ==
[2022-03-27] MEDS ORDERED: Heparin 5,000 UNITS/ML VIAL ONE (10:08)
[2022-03-27] MEDS ORDERED: Bupivacaine/Epinephrine 0.25% 30 ML VIAL ONE (10:40)
[2022-03-27] MEDS ORDERED: SUGAMMADEX SODIUM 200 MG/2 ML VIAL ONE (11:00)
[2022-03-27] MEDS ORDERED: fentaNYL PF 100 MCG/2 ML SYRINGE ONE (11:00)
[2022-03-27] MEDS ORDERED: Sodium Chloride 0.9% 0 ML ONE (11:08)
[2022-03-27] MEDS ORDERED: CEFAZOLIN 2 GM VIAL ONE (11:08)
[2022-03-27 11:15] LABS: SARS-CoV-2 NAA Rapid Test Not Detected (NotDetected)
[2022-03-27] MEDS ORDERED: Dexamethasone 20 MG/5 ML VIAL ONE (11:19)
[2022-03-27] MEDS ORDERED: Rocuronium Bromide 10 MG/ML (10ML VIAL) ONE (11:19)
[2022-03-27] MEDS ORDERED: Ondansetron PF 4 MG/2 ML Vial ONE (11:19)
[2022-03-27] MEDS ORDERED: PROPOFOL 200 MG/20 ML VIAL ONE (11:19)
[2022-03-27] MEDS ORDERED: Dextrose 50% Abboject 50 ML SYRINGE SLOW IVP PRN (12:31)
[2022-03-27] MEDS ORDERED: Morphine 4 MG/ML VIAL SLOW IVP PRN ×2 (12:31→12:47)
[2022-03-27] MEDS ORDERED: Promethazine HCl 25 MG/ML VIAL IM PRN ×2 (12:31→12:34)
[2022-03-27] MEDS ORDERED: diphenhydrAMINE 50 MG/ML VIAL IVP PRN (12:31)
[2022-03-27] MEDS ORDERED: Dextrose 5% in Water 1,000 ML IV PRN (12:31)
[2022-03-27] MEDS ORDERED: hydrALAZINE 20 MG/ML VIAL SLOW IVP PRN (12:31)
[2022-03-27] MEDS ORDERED: Ondansetron PF 4 MG/2 ML Vial IVP PRN (12:31)
[2022-03-27] MEDS ORDERED: Promethazine HCl 25 MG/ML VIAL IVPB PRN (12:34)
[2022-03-27] MEDS ORDERED: Ondansetron HCl/PF 4 MG/2 ML Vial IVP PRN ×2 (12:34→12:35)
[2022-03-27] MEDS ORDERED: Non-Formulary Medication 1 EACH PO PRN (12:35)
[2022-03-27] MEDS ORDERED: Ketorolac Tromethamine 30 MG/ML VIAL IM/IV PRN (12:35)
[2022-03-27] MEDS ORDERED: Promethazine HCl 25 MG/ML VIAL IM/IV PRN (12:35)
[2022-03-27] MEDS ORDERED: HYDROmorphone 2 MG/ML VIAL SLOW IVP PRN (12:35)
[2022-03-27] MEDS ORDERED: FENTANYL 50 MCG/ML 1 ML VIAL ONE ×5 (12:54→18:13)
[2022-03-27] MEDS ORDERED: HYDROmorphone 0.5 MG/0.5 ML SYRINGE ONE ×2 (15:37→16:47)
[2022-03-27] MEDS ORDERED: Ketorolac Tromethamine 30 MG/ML VIAL ONE (15:41)
[2022-03-27 19:31] VITALS: BMI 41.7
[2022-03-27] MEDS: Ketorolac Tromethamine 30 MG/ML VIAL IVP SCH ×2 (19:38→23:36)
[2022-03-27] MEDS: D5 1/2 NS w/20 mEq KCL 1,000 ML IV SCH ×2 (19:38→22:15)
[2022-03-27] MEDS: CEFAZOLIN 2 GM in Sodium Chloride 0.9% 100 ML IVPB SCH (19:39)
[2022-03-27] MEDS: Hydrocodone-Acetamin 15 ML UDCUP PO PRN (23:35)
[2022-03-28] MEDS: D5 1/2 NS w/20 mEq KCL 1,000 ML IV SCH ×2 (05:15→11:58)
[2022-03-28] MEDS: CEFAZOLIN 2 GM in Sodium Chloride 0.9% 100 ML IVPB SCH (05:15)
[2022-03-28 06:15] LABS: Anion Gap 10 mmol/L (10-20); BUN (Urea Nitrogen) 8 mg/dL (9.8-20.1); Calc. Creatinine Clearance 130 mL/min (70-130); Calcium 8.8 mg/dL (7.8-10.44); Carbon Dioxide 25 mmol/L (23-31); Chloride 106 mmol/L (98-107); Estimated GFR 93; Glucose 122 mg/dL (80-115); Potassium 3.9 mmol/L (3.5-5.1); Sodium 137 mmol/L (136-145)
[2022-03-28] MEDS: Ketorolac Tromethamine 30 MG/ML VIAL IVP SCH ×2 (06:18→11:57)
[2022-03-28 06:19] LABS: #Lymphocytes 1.4 thou/uL (1.20-3.40); #Monocytes 0.9 thou/uL (0.11-0.59); #Neutrophils 8.9 thou/uL (1.40-6.50); %Basophils 0.2 % (0.0-1.0); %Eosinophils 0.1 % (0.0-10.0); %Lymphocytes 12.7 % (21.0-51.0); %Monocytes 7.7 % (0.0-10.0); %Neutrophils 79.4 % (42.0-75.0); Hemoglobin 15.1 g/dL (12.0-16.0); Mean Corpuscular HGB CONC 33.3 g/dL (32.0-36.0); Mean Corpuscular Hemoglobin 31.9 pg (27.0-31.0); Mean Corpuscular Volume 95.9 fl (78.0-98.0); Mean Platelet Volume 8.4 fL (7.4-10.4); Platelet Count 208 10x3/uL (130-400); RBC Distribution Width 12.5 % (11.5-14.5); Red Blood Cell (RBC) Count 4.73 mill/uL (4.20-5.40); White Blood Cell (WBC) Count 11.2 10x3/uL (4.8-10.8)
[2022-03-28] MEDS ORDERED: Pantoprazole 40 MG VIAL IVP SCH (09:00)
[2022-03-28] MEDS ORDERED: Enoxaparin Sodium 40 MG/0.4 ML SYRINGE SC SCH (09:00)
[2022-03-28] MEDS: Hydrocodone-Acetamin 15 ML UDCUP PO PRN (09:01)
[2022-03-28 11:49] VITALS: BP 108/67; TEMP 97.6
== END 2022-03-28 13:35 | disposition home or self-care (01) | DRG 621 ==
LOC: SURG A 03-27 08:19 → SURG B 03-27 19:23
PROVIDERS: ADMIT Surgery; ATTEND Surgery
PROC: 0DB64Z3 Excision of Stomach, Percutaneous Endoscopic Approach, Vertical (ICD-10-PCS; principal; 2022-03-27)
PROC: 8E0W4CZ Robotic Assisted Procedure of Trunk Region, Percutaneous Endoscopic Approach (ICD-10-PCS; 2022-03-27)
DX: E66.01 Morbid (severe) obesity due to excess calories (principal); Z20.822 Contact with and (suspected) exposure to COVID-19; I10 Essential (primary) hypertension; E11.9 Type 2 diabetes mellitus without complications; E78.5 Hyperlipidemia, unspecified; G47.00 Insomnia, unspecified; E03.9 Hypothyroidism, unspecified; Z79.84 Long term (current) use of oral hypoglycemic drugs; Z68.41 Body mass index [BMI] 40.0-44.9, adult; Z98.1 Arthrodesis status; Z79.890 Hormone replacement therapy; Z79.899 Other long term (current) drug therapy
CPT/HCPCS: 36415; 80048; 85025; 88307; C9113; J1100; J1170; J1644; J1650; J1885; J2270; J2405; J2704; J3010; J3480; J3490; U0002

== ENCOUNTER 2022-06-19 15:29 | Outpatient (CLI) | payer OTHER | END 2022-06-19 15:30 | disposition home or self-care (01) | LOC: BICULT 15:29 | PROVIDERS: ATTEND Family Medicine | DX: R68.89 Other general symptoms and signs (principal); I70.292 Other atherosclerosis of native arteries of extremities, left leg; I70.291 Other atherosclerosis of native arteries of extremities, right leg; M62.89 Other specified disorders of muscle | CPT/HCPCS: 93923 ==

== ENCOUNTER 2024-01-21 09:58 | Outpatient (CLI) | payer OTHER ==
[2024-01-21] MEDS ORDERED: Iopamidol 370 76% 100 ML VIAL ONE (11:30)
== END 2024-01-21 09:59 | disposition home or self-care (01) ==
LOC: BICCT 09:58
PROVIDERS: ATTEND Family Medicine
DX: R59.0 Localized enlarged lymph nodes (principal); I83.891 Varicose veins of right lower extremity with other complications
CPT/HCPCS: 71260; Q9967

== ENCOUNTER 2025-04-18 16:20 | Outpatient (CLI) | payer OTHER | END 2025-04-18 16:21 | disposition home or self-care (01) | LOC: BICRAD 16:20 | PROVIDERS: ATTEND Family Medicine | DX: R09.89 Other specified symptoms and signs involving the circulatory and respiratory systems (principal); W19.XXXA Unspecified fall, initial encounter | CPT/HCPCS: 71046 ==